=== PATIENT | male | born 1955 | race American Indian/Alaskan Native ===

== ENCOUNTER 2021-12-12 13:52 | Emergency (ER) | payer MEDICARE ==
--- NOTE | 2021-12-12 15:44 | Emergency Department Report ---
ED General Adult HPI - General Chief complaint: Syncope Stated complaint: SYNCOPE Time Seen by Provider: 12/12/21 15:23 Source: patient, EMS (EMS documentation is reviewed and appreciated), RN notes reviewed Mode of arrival: Stretcher Limitations: No Limitations - History of Present Illness Initial comments: The patient was evaluated in the emergency department for symptoms described in the history of present illness. He/she was evaluated in the context of the global COVID-19 pandemic, which necessitated consideration that the patient might be at risk for infection with the virus that causes COVID-19. Institutional protocols and algorithms that pertain to the evaluation of patients at risk for COVID-19 are in a state of rapid change based on i nformation released by regulatory bodies including the CDC and federal and state organizations. These policies and algorithms were followed during the patient's care in the emergency department. Please note that these policies, procedures and recommendations changed on a rapid basis. This is a 66-year-old gentleman, with a past medical history of tobacco use, and hypertension, who was brought to the hospital by emergency medical services. As per EMS documentation, the patient had 2 episodes of loss of consciousness while getting his haircut. Patient advised that he has not been drinking much water, and that he has been out in the sun. He also reports he did not eat breakfast this morning. EMS documents GCS of 15, ANO x3, with an unremarkable noncontributory physical examination. EMS starts an 18-gauge IV in the field, and give the patient 1 L of crystalloid while in the field. A prehospital EKG is essentially unremarkable, shows a sinus rhythm, with a leftward axis deviation, and an LAFB, as well as left ventricular hypertrophy. The patient to me complains of loss of consciousness twice while on the keith chair. He reports a minimal headache, which is not sudden or thunderclap in nature. He endorses abdominal cramping which is now resolved. He currently denies all physical pain. He denies travel, surgery, immobilization, DVT and pulmonary embolism risk factors. Denies a personal/family history of DVT, PE, and CAD/HI that he is aware of. He reports he had similar episodes happen to him a few months ago, believes that he was checked out at another emergency r oom, referred to outpatient cardiology. Thus far, has not had an echocardiogram that he is aware of. He reports being in his usual state of health, denies illicit drug use, denies starting new or different medications. -: Sudden Severity scale (0 -10): 0 Consistency: now resolved Improves with: none, immobilization Associated Symptoms: denies other symptoms - Related Data Allergies Allergy/AdvReac Type Severity Reaction Status Date / Time strawberry Allergy Shortness Verified 12/12/21 14:25 of Breath ED Review of Systems ROS: Stated complaint: SYNCOPE Other details as noted in HPI Comment: All other systems reviewed and negative Cardiovascular: syncope. denies: chest pain Gastrointestinal: denies: nausea, vomiting, diarrhea Neurological: as per HPI. denies: weakness ED Past Medical Hx - Past Medical History Previous Medical History?: Yes Hx Hypertension: Yes Hx CVA: No Hx Heart Attack/AMI: No Hx Congestive Heart Failure: No Hx Diabetes: No Hx Deep Vein Thrombosis: No Hx Pulmonary Embolism: No Hx GERD: No Hx Liver Disease: No Hx Renal Disease: No Hx of Cancer: No Hx Sickle Cell Disease: No Hx Arthritis: No Hx Headaches / Migraines: No Hx Seizures: No Hx Kidney Stones: No Hx Psychiatric Treatment: No Hx Asthma: No Hx COPD: No Hx Tuberculosis: No Hx Dementia: No Hx HIV: No Additional medical history: hyperlipidemia - Surgical History Past Surgical History?: No ED Physical Exam - General Limitations: No Limitations General appearance: alert, in no apparent distress - Head Head exam: Present: atraumatic, normocephalic - Eye Eye exam: Present: normal appearance, PERRL, EOMI, other (Visual acuity intact to finger counting, color perception, reading at a close distance). Absent: nystagmus - ENT ENT exam: Present: normal exam, normal orophraynx, mucous membranes moist, normal external ear exam - Neck Neck exam: Present: normal inspection, full ROM. Absent: tenderness, meningismus - Respiratory Respiratory exam: Present: normal lung sounds bilaterally. Absent: respiratory distress, wheezes, rales, rhonchi, stridor, decreased breath sounds - Cardiovascular Cardiovascular Exam: Present: regular rate, normal rhythm, normal heart sounds. Absent: bradycardia, tachycardia, irregular rhythm, systolic murmur, diastolic murmur, rubs, gallop - GI/Abdominal GI/Abdominal exam: Present: soft. Absent: distended, tenderness, guarding, rebound, rigid, pulsatile mass - Rectal Rectal exam: Present: deferred - Extremities Exam Extremities exam: Present: normal inspection, full ROM, other (2+ pulses noted in the bilateral upper and lower extremities. There is no palpable cord. negative Homans sign. Muscular compartments are soft. The pelvis is stable.). Absent: pedal edema, calf tenderness - Back Exam Back exam: Present: normal inspection. Absent: tenderness, CVA tenderness (R), CVA tenderness (L), paraspinal tenderness, vertebral tenderness - Neurological Exam Neurological exam: Present: alert, oriented X3, normal gait (There is no past-po inting. There is normal [id number]. There is a normal gait. There is no pronator drift.), other (No facial droop. Tongue midline. Extraocular movements intact bilaterally. Facial sensation intact to light touch in V1, V2, V3 distribution bilaterally. 5 and a 5 strength in 4 extremities. Sensation intact to light touch in 4 extremities.). Absent: motor sensory deficit - Psychiatric Psychiatric exam: Present: normal affect, normal mood - Skin Skin exam: Present: warm, dry, intact, normal color. Absent: rash ED Course Vital Signs 12/12/21 12/12/21 12/12/21 15:00 15:06 15:16 Temperature 98.5 F Pulse Rate 72 67 Pulse Rate [ Lying] Respiratory 18 15 Rate Blood Pressure 130/100 130/100 Blood Pressure 130/100 [Left] Blood Pressure [Lying] O2 Sat by Pulse 100 100 Oximetry 12/12/21 12/12/21 12/12/21 15:30 15:46 16:00 Temperature Pulse Rate 60 68 66 Pulse Rate [ Lying] Respiratory 14 15 17 Rate Blood Pressure 135/88 149/81 145/82 Blood Pressure [Left] Blood Pressure [Lying] O2 Sat by Pulse 100 99 100 Oximetry 12/12/21 12/12/21 12/12/21 16:16 16:25 16:26 Temperature Pulse Rate Pulse Rate [ 87 Lying] Respiratory 18 Rate Blood Pressure 136/87 Blood Pressure [Left] Blood Pressure 151/89 [Lying] O2 Sat by Pulse 100 98 Oximetry 12/12/21 12/12/21 12/12/21 16:30 16:46 17:00 Temperature Pulse Rate Pulse Rate [ Lying] Respiratory Rate Blood Pressure 126/70 132/81 149/81 Blood Pressure [Left] Blood Pressure [Lying] O2 Sat by Pulse 100 100 99 Oximetry - Reevaluation(s) Reevaluation #1: 12/12/21 17:58 Patient observed in this department for hours without recurrent syncope. His laboratory studies are nonactionable with the exception of an elevated D-dimer. Have recommended CT angiogram chest, as well as repeat troponin and repeat EKG. Patient is refusing and declining all further interventions. He is going to leave AGAINST MEDICAL ADVICE. Risks of leaving, including undiagnosed HI, pulmonary embolism, , disability, paralysis discussed extensively with the patient, who articulates understanding in his own words. This conversation is witnessed by nurse Shanta Freitas The patient is advised that he should return to the emergency room [facility] if and when he changes his mind. Patient articulates understanding in his own words. He is awake, alert, oriented, sober, of sound mind and exhibits decision-making capacity. He is free from distracting injury. ED Medical Decision Making - Lab Data Result diagrams: 12/12/21 16:43 12/12/21 16:43 Vital Signs 12/12/21 12/12/21 12/12/21 15:00 16:25 16:26 Temperature 98.5 F Pulse Rate 72 Pulse Rate [ 87 Lying] Respiratory 18 18 Rate Blood Pressure 130/100 [Left] Blood Pressure 151/89 [Lying] O2 Sat by Pulse 100 98 Oximetry Lab Results 12/12/21 12/12/21 12/12/21 Range/Units 16:43 16:43 16:43 WBC 8.7 (4.5-11.0) K/mm3 RBC 4.77 (3.65-5.03) M/mm3 Hgb 13.1 (11.8-15.2) gm/dl Hct 39.5 (35.5-45.6) % MCV 83 L (84-94) fl MCH 28 (28-32) pg MCHC 33 (32-34) % RDW 16.2 H (13.2-15.2) % Plt Count 327 (140-440) K/mm3 Lymph % (Auto) 29.0 (13.4-35.0) % [place] % (Auto) 5.4 (0.0-7.3) % Eos % (Auto) 1.1 (0.0-4.3) % Baso % (Auto) 0.5 (0.0-1.8) % Lymph # (Auto) 2.5 (1.2-5.4) K/mm3 [place] # (Auto) 0.5 (0.0-0.8) K/mm3 Eos # (Auto) 0.1 (0.0-0.4) K/mm3 Baso # (Auto) 0.0 (0.0-0.1) K/mm3 Seg Neutrophils % 64.0 (40.0-70.0) % Seg Neutrophils # 5.6 (1.8-7.7) K/mm3 PT 13.3 (12.2-14.9) Sec. INR 0.89 (0.87-1.13) D-Dimer 320.93 H (0-234) ng/mlDDU Sodium 141 (137-145) mmol/L Potassium 4.3 (3.6-5.0) mmol/L Chloride 101.6 (98-107) mmol/L Carbon Dioxide 27 (22-30) mmol/L Anion Gap 17 mmol/L BUN 10 (9-20) mg/dL Creatinine 1.2 (0.8-1.3) mg/dL Estimated GFR > 60 ml/min BUN/Creatinine Ratio 8 % Glucose 130 H (75-100) mg/dL Calcium 9.7 (8.4-10.2) mg/dL Magnesium (1.7-2.3) mg/dL Total Bilirubin 0.40 (0.1-1.2) mg/dL AST 26 (5-40) units/L ALT 43 (7-56) units/L Alkaline Phosphatase 83 (35-129) units/L Total Creatine Kinase (55-170) units/L Troponin T (0.00-0.029) ng/mL Total Protein 6.9 (6.3-8.2) g/dL Albumin 4.6 (3.9-5) g/dL Albumin/Globulin Ratio 2.0 % 12/12/21 Range/Units 16:43 WBC (4.5-11.0) K/mm3 RBC (3.65-5.03) M/mm3 Hgb (11.8-15.2) gm/dl Hct (35.5-45.6) % MCV (84-94) fl MCH (28-32) pg MCHC (32-34) % RDW (13.2-15.2) % Plt Count (140-440) K/mm3 Lymph % (Auto) (13.4-35.0) % [place] % (Auto) (0.0-7.3) % Eos % (Auto) (0.0-4.3) % Baso % (Auto) (0.0-1.8) % Lymph # (Auto) (1.2-5.4) K/mm3 [place] # (Auto) (0.0-0.8) K/mm3 Eos # (Auto) (0.0-0.4) K/mm3 Baso # (Auto) (0.0-0.1) K/mm3 Seg Neutrophils % (40.0-70.0) % Seg Neutrophils # (1.8-7.7) K/mm3 PT (12.2-14.9) Sec. INR (0.87-1.13) D-Dimer (0-234) ng/mlDDU Sodium (137-145) mmol/L Potassium (3.6-5.0) mmol/L Chloride (98-107) mmol/L Carbon Dioxide (22-30) mmol/L Anion Gap mmol/L BUN (9-20) mg/dL Creatinine (0.8-1.3) mg/dL Estimated GFR ml/min BUN/Creatinine Ratio % Glucose (75-100) mg/dL Calcium (8.4-10.2) mg/dL Magnesium 1.80 (1.7-2.3) mg/dL Total Bilirubin (0.1-1.2) mg/dL AST (5-40) units/L ALT (7-56) units/L Alkaline Phosphatase (35-129) units/L Total Creatine Kinase 136 (55-170) units/L Troponin T < 0.010 (0.00-0.029) ng/mL Total Protein (6.3-8.2) g/dL Albumin (3.9-5) g/dL Albumin/Globulin Ratio % - EKG Data -: EKG Interpreted by Me EKG shows normal: sinus rhythm Rate: normal - EKG Data When compared to previous EKG there are: previous EKG unavailable 12/12/21 16:28 The EKG is interpreted by myself at 15: 33 Sinus rhythm, with a rate of 72 bpm. Left axis deviation, left anterior fascicular block, intervals unremarkable, minimal motion artifact. Unchanged from prehospital EKG. This is an abnormal EKG. This is not a STEMI. Differential diagnosis, include but not limited to: Orthostasis, vagal event, structural cardiac disease, dehydration, heat exhaustion, hypoglycemia, pulmonary embolism Assessment and plan: 66-year-old gentleman, who is not currently tachycardic, tachypneic or hypoxic, who denies DVT and pulmonary embolism risk factors, who is low risk by Wells criteria for pulmonary embolism, who is clinically sober with a GCS of 15 and ambulatory with a steady gait, with a complaint of 2 episodes of loss of consciousness, after not eating anything this morning, and being out in the hot sun. This is happened to him before, and he is followed up with outpatient primary care, and he reports that he has been referred to outpatient cardiology. Place patient on qa internship, obtain appropriate laboratory studies, including troponin x2 and EKG x2. Obtain orthostatic vital signs. Reassess. Place patient on observation status. Discussed with the patient. He is agreeable to the plan of care Critical care attestation.: If time is entered above; I have spent that time in minutes in the direct care of this critically ill patient, excluding procedure time. ED Disposition Clinical Impression: Syncope Disposition: 07 LEFT AGAINST MEDICAL ADVICE Is pt being admited?: No Does the pt Need Aspirin: No Condition: Undetermined Instructions: Syncope (ED), Syncope, [id number] Additional Instructions: As we discussed, you have left the hospital/emergency room AGAINST MEDICAL ADVICE. By leaving, you risked , disability, paralysis, permanent loss of quality of life. The ER is open 24 hours a day, 7 days a week. It never closes. Please return to the emergency room right away if and when you change your mind. If you decide not to return to the emergency room, please follow-up with the listed physician referrals as soon as possible. Follow-up as soon as possible with an outpatient primary care doctor or java lead engineer. Do not drive or operate motor vehicles for the next 6 months, or until cleared to do so by her primary care doctor or java lead engineer [facility]: [facility] - [facility] [Provider [facility]] - [facility] Forms: Work/School Release Form(ED)
[2021-12-12 17:11] LABS: Basophils % (Auto) 0.5 % (0.0-1.8); Eosinophils # (Auto) 0.1 K/mm3 (0.0-0.4); Eosinophils % (Auto) 1.1 % (0.0-4.3); Hematocrit 39.5 % (35.5-45.6); Hemoglobin 13.1 gm/dl (11.8-15.2); Lymphocytes # (Auto) 2.5 K/mm3 (1.2-5.4); Mean Corpuscular HGB Conc 33 % (32-34); Mean Corpuscular Volume 83 fl (84-94); Monocytes # (Auto) 0.5 K/mm3 (0.0-0.8); Monocytes % (Auto) 5.4 % (0.0-7.3); Platelet Count 327 K/mm3 (140-440); Red Blood Count 4.77 M/mm3 (3.65-5.03); Red Cell Distribution Width 16.2 % (13.2-15.2)
[2021-12-12 17:20] LABS: INR 0.89 (0.87-1.13)
[2021-12-12 17:32] LABS: Alanine Aminotransferase 43 units/L (7-56); Albumin 4.6 g/dL (3.9-5); BUN/Creatinine Ratio 8; Blood Urea Nitrogen 10 mg/dL (9-20); Calcium 9.7 mg/dL (8.4-10.2); Hemolysis Index 13
[2021-12-12] MEDS ORDERED: SODIUM CHLORIDE 0.9% 250ML 250 ML IV ONE (17:38)
[2021-12-12 18:06] VITALS: BP 126/64
--- NOTE | 2021-12-14 15:12 | Electrocardiograph Report ---
[facility] Test Date: 2021-12-12 Test Time: 15:33:11 Pat Name: GEOFF MEDEIROS Department: Room: Gender: M Icu Manager: LISETH : [id number] Requested By: IAMNI LORENZO Order Number: [id number] Reading MD: Vanessa Lockwood Measurements Intervals [place] Rate: 72 P: 39 NV: 164 QRS: -47 QRSD: 96 T: 2 QT: 398 QTc: 436 Interpretive Statements Sinus rhythm Left anterior fascicular block No previous ECG available for comparison Electronically Signed On 12-14-2021 15:11:54 EDT by Vanessa Lockwood
== END 2021-12-12 18:07 | disposition left against medical advice (07) ==
LOC: ED 13:52
DX: R55 Syncope and collapse (principal); I10 Essential (primary) hypertension; Z91.02 Food additives allergy status
CPT/HCPCS: 36415; 80053; 82550; 83735; 84484; 85025; 85379; 85610; 93005; 99283

== ENCOUNTER 2022-01-29 08:10 | Outpatient (CLI) | payer MEDICARE ==
--- NOTE | 2022-01-29 09:54 | Cat Scan Report ---
CT ABDOMEN AND PELVIS WITHOUT CONTRAST INDICATION / CLINICAL INFORMATION: Prostate cancer. TECHNIQUE: Axial CT images were obtained through the abdomen and pelvis without IV contrast. All CT scans at this location are performed using CT dose reduction for ALARA by means of automated exposure control. COMPARISON: No prior cross-sectional imaging of the abdomen/pelvis; CT chest dated 10/31/2020 FINDINGS: LOWER CHEST: Emphysema. Bibasilar subpleural reticulation. 3 mm noncalcified pulmonary nodule in the lingula on image 10 series 2, unchanged since CT chest dated 10/31/2020. Distal esophageal wall thicken ing. LIVER: No significant abnormality. GALLBLADDER: No significant abnormality. BILE DUCTS: No significant abnormality. PANCREAS: No significant abnormality. SPLEEN: No significant abnormality. ADRENALS: No significant abnormality. RIGHT KIDNEY / URETER: No significant abnormality. LEFT KIDNEY / URETER: No significant abnormality. STOMACH / SMALL BOWEL: No significant abnormality. COLON: No significant abnormality. APPENDIX: No significant abnormality. PERITONEUM: No free fluid. No free air. No fluid collection. LYMPH NODES: No significant adenopathy. AORTA / ARTERIES: Moderate atherosclerotic calcification without acute abnormality. IVC / VEINS: No significant abnormality. URINARY BLADDER: Bladder wall thickening may be related to underdistention. REPRODUCTIVE ORGANS: Prostate gland is mildly enlarged. ADDITIONAL FINDINGS: Fat-containing umbilical hernia. SKELETAL SYSTEM: No significant abnormality. IMPRESSION: 1. No significant abnormality, specifically no evidence of metastatic disease. 2. Persistent esophageal wall thickening and additional chronic/incidental findings detailed above. Signer Name: Reed Mchugh MD Signed: 01/29/2022 9:50 AM Workstation Name: [id number]
--- NOTE | 2022-01-29 13:19 | Nuclear Medicine Report ---
NUCLEAR MEDICINE BONE SCAN, WHOLE BODY INDICATION: C61. Initial staging of prostate cancer TECHNIQUE: 26.3 mCi of Tc-99m MDP were injected IV. Whole body images were obtained. COMPARISON: CT abdomen pelvis without contrast performed the same day. FINDINGS: Skeletal Structures: Fairly symmetric, likely degenerative uptake is present involving the shoulders , thoracic spine, knees and ankles. Skeletal Lesions: None. Soft Tissues: Normal. Kidneys: Normal, symmetric activity. Additional Findings: Urinary contamination in the perineum is noted. IMPRESSION: No evidence for osseous metastasis.. Signer Name: Iker Gamble Jr, MD Signed: 01/29/2022 1:15 PM Workstation Name: [id number]
== END 2022-01-29 08:11 | disposition home or self-care (01) ==
LOC: NM 08:10 → MERGE 09:00
PROVIDERS: ATTEND Urology
DX: C61 Malignant neoplasm of prostate (principal); J43.9 Emphysema, unspecified; K44.9 Diaphragmatic hernia without obstruction or gangrene; K42.9 Umbilical hernia without obstruction or gangrene; I25.10 Atherosclerotic heart disease of native coronary artery without angina pectoris
CPT/HCPCS: 74176; 78306; A9503